=== PATIENT | female | born 1975 | race Caucasian/White ===

== ENCOUNTER 2024-01-18 12:26 | Emergency (ER) | payer OTHER, MEDICAID, SELFPAY ==
[2024-01-18 12:35] VITALS: BP 116/87; PULSE 65; RESP 16; TEMP 36.6; O2SAT 99
--- NOTE | 2024-01-18 13:14 | ED.GENADULT ---
HPI - General Adult General Chief complaint: Unspecified Stated complaint: Blood Pressure Problem Time Seen by Provider: 01/18/24 13:19 Source: patient Mode of arrival: ambulatory Limitations: no limitations History of Present Illness HPI narrative: MRI 48 y/o female with hx brain aneurysm and HTN, presented for concern of low blood pressure today. States she was scheduled for an MRI today, however her BP was 72/58 with multiple rechecks and the MRI was cancelled. She reports feeling dizzy, nauseated, and weak at that time, which she attributed to car sickness. mother bedside also says she had a slow time forming her words. Pt states she was advised by the staff to call pcp or go to the ER. She says she went home to recheck her bp, and felt slightly better so she came to instead of ER. Continues to feel tired. Denies chest pain, palpitations, dizziness, nausea, vomiting at this time. States her normal BP 150s/100s after taking meds. History of aneurysm coil, shunt and stents. Related Data Home Medications Medication Instructions Recorded Confirmed carvedilol 12.5 mg tablet mg 01/18/24 diltiazem HCl 360 mg mg PO 01/18/24 capsule,extended release 24 hr losartan 100 mg tablet mg 01/18/24 nortriptyline 10 mg capsule mg 01/18/24 pravastatin 10 mg tablet mg 01/18/24 sertraline 50 mg tablet mg 01/18/24 Allergies Allergy/AdvReac Type Severity Reaction Status Date / Time No Known Allergies Allergy Verified 01/18/24 12:37 Review of Systems Review of Systems: CONSTITUTIONAL: Reports fatigue Denies body aches, fever, chills, or sweats. EYES: Denies visual changes, redness, or discharge. ENT: Denies rhinorrhea, congestion, sore throat, or otalgia. CARDIOVASCULAR: Denies chest pain, palpitations, or edema. RESPIRATORY: Denies cough or dyspnea. GASTROINTESTINAL: Denies abdominal pain, vomiting, or diarrhea. SKIN: Denies rash, itching, or wounds. MUSCULOSKELETAL: Denies back pain, joint pain, or myalgia. NEUROLOGIC: Denies headache, numbness, tingling, or weakness. All systems reviewed & are unremarkable except as noted in HPI and below PMFSH Past Medical History Medical History (Updated 01/18/24 @ 15:35 by Nathalie Kohler APRN) Brain aneurysm Surgical History Surgical History (Updated 01/18/24 @ 15:31 by Nathalie Kohler APRN) FLOUR TESTER (ventriculoperitoneal) shunt status Comments At time of signature, I have reviewed and agree with nursing past medical, surgical, social and family history unless otherwise noted. Please see nursing chart for further information. There is no relevant family history pertinent to the presenting complaint Exam Narrative: GENERAL: Well-appearing, well-nourished, and in no acute distress. HEAD: Normocephalic, atraumatic. EYES: EOMI. PERRLA. No redness or drainage. Conjunctivae normal. ENT: Mucous membranes pink and moist. No rhinorrhea. TMs normal bilaterally. Throat normal. Uvula midline. NECK: Normal AROM. Supple. No lymphadenopathy. CHEST: No respiratory distress. Clear to auscultation. HEART: Regular rate and rhythm; [place]. No murmur appreciated. Normal peripheral pulses. ABDOMEN: Soft, nontender, nondistended, normal active bowel sounds. EXTREMITIES: Normal range of motion. No edema. SKIN: Warm, dry, no rash. Capillary refill normal. Normal skin turgor. NEURO: No focal deficits. Alert and oriented x3. Gait steady. PSYCH: Normal affect. No signs of depression or anxiety. Course Course Emergency Course: Patient is aware of diagnosis, understands and agrees to treatment plan. Anticipatory guidance given. Patient agrees to follow-up as directed and is aware of reasons to seek care at the emergency department. Portions of this record may have been created with voice recognition software Level of Care: Express Care Visit Vital Signs Vital signs: Vital Signs Temperature 97.9 F 01/18/24 12:35 Pulse Rate 65 01/18/24 12:35 Respiratory Ra
--- NOTE | 2024-01-18 13:33 | ECG_ITS ---
Test Date: 2024-01-18 13:39:59 Measurements Intervals [place] Rate: 53 P: 1 AK: 124 QRS: 66 QRSD: 94 T: 104 QT: 475 QTc: 446 Interpretive Statements SINUS BRADYCARDIA T-WAVE ABNROMALITY IN ANTEORLATERAL LEADS No previous ECG available for comparison Electronically Signed On 01-19-2024 12:32:47 CDT by Jennifer Wilkerson M.D.
== END 2024-01-18 14:10 | disposition left against medical advice (07) ==
PROVIDERS: Emergency Provider Nurse Practitioner Family; PCP Nurse Practitioner Family
DX: R53.83 Other fatigue (principal); I10 Essential (primary) hypertension; R00.1 Bradycardia, unspecified
CPT/HCPCS: 93005; 99213; G0463